=== PATIENT | female | born 1995 | race Caucasian/White ===

== ENCOUNTER 2017-08-24 18:16 | Emergency (ER) | payer OTHER ==
--- NOTE | 2017-08-24 18:30 | EDPHY ---
H & P Stated Complaint: High HR Time Seen by Provider: 08/24/17 18:27 - Personal History LMP (Females 10-55): 1-7 Days Ago Current Tetanus/Diphtheria Vaccine: Yes Current Tetanus Diphtheria and Acellular Pertussis (TDAP): Yes - Medical/Surgical History Hx Asthma: No Hx Chronic Respiratory Disease: No Hx Diabetes: No Hx Cardiac Disease: No Hx Renal Disease: No Hx Cirrhosis: No Hx Alcoholism: No Hx HIV/AIDS: No Hx Splenectomy or Spleen Trauma: No Other PMH: pcos metformin spiralactone celiac disease - Social History Smoking Status: Never smoked Constitutional: Initial Vital Signs Temperature (C) 36.9 C 08/24/17 18:18 Heart Rate 112 H 08/24/17 18:18 Respiratory Rate 16 08/24/17 18:18 Blood Pressure 118/74 08/24/17 18:18 O2 Sat (%) 99 08/24/17 18:18 O2 Delivery Mode Room Air Allergies/Adverse Reactions: No Known Allergies Allergy (Unverified 08/26/11 20:28) Home Medications: Medication Instructions Recorded Azelaic Acid [Finacea] 50 gm TP DAILY 08/26/11 Fexofenadine/Pseudoephedrine 1 each PO DAILY 08/26/11 [Marina-D 24 Hour Tablet] Melatonin [Melatonin 3 MG (OTC)] 3 mg PO HS 08/26/11 SULFAMETHOXAZOLE/TRIMETHOPRIM 1 each PO BID #20 tab 08/26/11 [BACTRIM DS TABLET] Medical Decision Making ED Course/Re-evaluation: CHIEF COMPLAINT: High heart rate HISTORY OF PRESENT ILLNESS: The patient is a 22 y/o female with a history of ADHD (on 40mg BID Strattera) complaining of a high heart rate, nausea, vomiting, and bilateral thigh cramps. For the past month she noticed that her heart rate has ranged between 100-130 beats per minute. Her PCP and psychologist thought that the patient's symptoms could be due to the ADHD medication. Due to these symptoms she has had difficulty cycling and hiking. Denies shortness of breath, abdominal pain, urinary or bowel complaints, numbness, paresthesias, fever. REVIEW OF SYSTEMS: A 10 point review of systems was performed and is negative with the exception of the elements mentioned in the history of present illness. PHYSICAL EXAM: HR, BP, O2 Sat, RR. Temp noted General Appearance: Alert, well hydrated, appropriate, and non-toxic appearing. Head: Atraumatic without scalp tenderness or obvious injury Eyes: Pupils equal, round, reactive to light and accommodation, EOMI, no trauma , no injection. Ears: Clear bilaterally, no perforation, normal landmarks Nose: Atraumatic, no rhinorrhea, clear. Throat: There is no erythema or exudates, no lesions, normal tonsils, mucus membranes moist. Neck: Supple, nontender, no lymphadenopathy. Respiratory: No retractions, no distress, no wheezes, and no accessory muscle use. Lungs are clear to auscultation bilaterally. Cardiovascular: Sinus tachycardia, no murmurs, rubs, or gallops. Bilateral carotid, radial, dorsalis pedis, and posterior tibial pulses intact. Good capillary refill all extremities. Gastrointestinal: Abdomen is soft, nontender, non-distended, no masses, no rebound, no guarding, no peritoneal signs. Musculoskeletal: Normal active ROM of all extremities, atraumatic. Neurological: Alert, appropriate, and interactive. The patient has normal DTRs and non-focal cranial nerves, motor, sensory, and cerebellar exam. Skin: No rashes, good turgor, no nodules on palpation. Past medical history: PCOS, celiac disease, ADHD Past surgical history: Denies Family history: Denies Social history: Father at bedside, lives in [place], single, student at [employer] DIAGNOSTICS/PROCEDURES/CRITICAL CARE TIME: EKG: The 12 lead EKG was interpreted by myself as sinus tachycardia with a rate of 101. See hard copy and/or "tracemaster" electronic copy for interpretation. DIFFERENTIAL DIAGNOSIS: The differential diagnosis for the patient's rapid heart rate included but was not limited to Strattera side effects, peripheral and central causes of vertigo , orthostatic causes including dehydration, cardiogenic and neurogenic causes, and blood loss. MEDICAL DECISION MAKING: The patient is a 22 y/o female with a history on ADHD (on 40mg BID Strattera) presenting with a high heart rate, nausea, vomiting, and bilateral thigh cramps. On exam she has sinus tachycardia. Labs and EKG ordered; 500mL IV NS administered. 1858: I reviewed patient's EKG as sinus tachycardia with a rate of 101. 1944: I reviewed the side-effects of Strattera which are similar to the patient' s current symptoms. 2010: Reassessed patient and discussed negative imaging and laboratory findings. She is mildly less tachycardic than my initial examination. I have advised her to follow up with her PCP with regards to the Strattera side effects. Return precautions provided; patient and her father are comfortable with this plan. - Data Points Laboratory Results: Laboratory Results 08/24/17 19:05 08/24/17 19:05 08/24/17 08/24/17 08/24/17 19:44 19:15 19:05 WBC RBC Hgb Hct MCV MCH MCHC RDW Plt Count MPV Neut % (Auto) Lymph % (Auto) Finney % (Auto) Eos % (Auto) Baso % (Auto) Nucleat RBC Rel Count Absolute Neuts (auto) Absolute Lymphs (auto) Absolute Monos (auto) Absolute Eos (auto) Absolute Basos (auto) Absolute Nucleated RBC Immature Gran % Immature Gran # D-Dimer < 0.27 ug/mLFEU ug/mLFEU (0.00-0.50) Sodium Potassium Chloride Carbon Dioxide Anion Gap BUN Creatinine Estimated GFR Glucose Calcium Magnesium POC Troponin I 0.00 ng/mL ng/mL (0.00-0.08) TSH Beta HCG, Qual NEGATIVE 08/24/17 08/24/17 19:05 19:05 WBC 4.05 10^3/uL 10^3/uL (3.80-9.50) RBC 3.97 10^6/uL L 10^6/uL (4.18-5.33) Hgb 12.2 g/dL L g/dL (12.6-16.3) Hct 35.5 % L % (38.0-47.0) MCV 89.4 fL fL (81.5-99.8) MCH 30.7 pg pg (27.9-34.1) MCHC 34.4 g/dL g/dL (32.4-36.7) RDW 14.0 % % (11.5-15.2) Plt Count 255 10^3/uL 10^3/uL (150-400) MPV 9.5 fL fL (8.7-11.7) Neut % (Auto) 50.9 % % (39.3-74.2) Lymph % (Auto) 37.3 % % (15.0-45.0) Finney % (Auto) 8.6 % % (4.5-13.0) Eos % (Auto) 2.5 % % (0.6-7.6) Baso % (Auto) 0.5 % % (0.3-1.7) Nucleat RBC Rel Count 0.0 % % (0.0-0.2) Absolute Neuts (auto) 2.06 10^3/uL 10^3/uL (1.70-6.50) Absolute Lymphs (auto) 1.51 10^3/uL 10^3/uL (1.00-3.00) Absolute Monos (auto) 0.35 10^3/uL 10^3/uL (0.30-0.80) Absolute Eos (auto) 0.10 10^3/uL 10^3/uL (0.03-0.40) Absolute Basos (auto) 0.02 10^3/uL 10^3/uL (0.02-0.10) Absolute Nucleated RBC 0.00 10^3/uL 10^3/uL (0-0.01) Immature Gran % 0.2 % % (0.0-1.1) Immature Gran # 0.01 10^3/uL 10^3/uL (0.00-0.10) D-Dimer Sodium 142 mEq/L mEq/L (135-145) Potassium 3.8 mEq/L mEq/L (3.3-5.0) Chloride 105 mEq/L mEq/L (97-110) Carbon Dioxide 21 mEq/l L mEq/l (22-31) Anion Gap 16 mEq/L mEq/L (8-16) BUN 12 mg/dL mg/dL (7-23) Creatinine 0.7 mg/dL mg/dL (0.6-1.0) Estimated GFR > 60 Glucose 77 mg/dL mg/dL (70-100) Calcium 9.6 mg/dL mg/dL (8.5-10.4) Magnesium 2.2 mg/dL mg/dL (1.6-2.3) POC Troponin I TSH 0.677 uIU/mL uIU/mL (0.465-4.680) Beta HCG, Qual Medications Given: Discontinued Medications Sodium Chloride (Ns) 500 mls @ 0 mls/hr IV EDNOW ONE; Wide Open PRN Reason: Protocol Stop: 08/24/17 18:54 Last Admin: 08/24/17 19:07 Dose: 500 mls Point of Care Test Results: Chemistry 08/24/17 19:15 POC Troponin I 0.00 ng/mL ng/mL (0.00-0.08) Departure - Departure Disposition: Home, Routine, Self-Care Clinical Impression: Tachycardia, Medication side effect Condition: Good Instructions: Tachycardia (ED) Additional Instructions: 1. Follow-up with your primary doctor within 72 hours to discuss your Strattera prescription and the subsequent side effects. 2. Return to the Emergency Department for fever, chest pain, shortness of breath , increasing pain or other worsening of condition. Referrals: [facility],. [Clinic] - As per Instructions Pebbles Carrera MD [Primary Care Provider] - As per Instructions Report Scribed for: Berto Bobby Report Scribed by: Gianna Ruiz Date of Report: 08/24/17 Time of Report: 18:30
[2017-08-24] MEDS ORDERED: NS 500 ML IV ONE (18:53)
--- NOTE | 2017-08-24 19:01 | CPEKG ---
Heart Rate: 101 RR Interval: 594 P-R Interval: 148 QRSD Interval: 88 QT Interval: 336 QTC Interval: 436 P Groom: 79 QRS Groom: 103 T Wave Groom: 34 EKG Severity - ABNORMAL ECG - EKG Impression: SINUS TACHYCARDIA EKG Impression: BIATRIAL ABNORMALITIES EKG Impression: BORDERLINE RIGHT AXIS DEVIATION Electronically Signed By: Berto Bobby 24-Aug-2017 20:59:04
[2017-08-24 19:19] LABS: PLATELET COUNT 255 10^3/uL (150-400)
[2017-08-24 20:24] VITALS: BP 103/72
== END 2017-08-24 20:24 | disposition home or self-care (01) ==
DX: R00.0 Tachycardia, unspecified (principal); T46.6X5A Adverse effect of antihyperlipidemic and antiarteriosclerotic drugs, initial encounter; E86.9 Volume depletion, unspecified
CPT/HCPCS: 84484-PO

== ENCOUNTER → 2017-08-25 | Outpatient (CLI) | payer OTHER | LOC: BMCIMAGING 10:55 | PROVIDERS: ATTEND Internal Medicine Rheumatology | DX: M25.511 Pain in right shoulder (principal); M54.2 Cervicalgia ==

== ENCOUNTER → 2017-10-20 | Outpatient (CLI) | payer OTHER | LOC: BMCIMAGING 09:05 | PROVIDERS: ATTEND Internal Medicine | DX: R16.0 Hepatomegaly, not elsewhere classified (principal) ==